=== PATIENT | male | born 1955 | race Caucasian/White ===

== ENCOUNTER 2017-05-30 20:18 | Emergency (ER) | payer MEDICAID ==
[~2017-05-30] VITALS: Ht 163.8 cm; Wt 143.5 kg
[~2017-05-30 20:18] MED LIST: ASPI-556 PO; DOXA1TAB2 PO; DOXY100C PO; FURO20 PO; HYDR-3965 PO; IBUP-2070 PO; LOSA50TA37 PO; METF500T4 PO; PRAV40 PO; SLOWK8 PO; TRAM50TA4 PO; TRI115O TP
[2017-05-30] MEDS ORDERED: BUPR-93 PO (20:30)
[2017-05-30] MEDS ORDERED: ASA3 PO (20:30)
[2017-05-30] MEDS ORDERED: SIMV-261 PO (20:30)
[2017-05-30 20:33] LABS: GLUCOSE,POINT OF CARE 256 MG/DL (70-110)
[2017-05-30 21:12] LABS: BASOPHILS % (AUTO) 0.2 % (0.0-2.0); EOSINOPHILS % (AUTO) 2.2 % (1.0-6.0); HEMATOCRIT 41.9 % (41-53); HEMOGLOBIN 14.3 g/dL (13.5-17.5); LYMPHOCYTES % (AUTO) 10.1 % (22.0-44.0); MEAN CORPUSCULAR HEMOGLOBIN 34.6 pg (26.0-34.0); MEAN CORPUSCULAR HGB CONC 34.2 G/dL (31.0-37.0); MEAN CORPUSCULAR VOLUME 101 fL (80-100); MONOCYTES # (AUTO) 0.6 K/uL (0.1-1.0); MONOCYTES % (AUTO) 6.2 % (2.0-9.0); NEUTROPHILS # (AUTO) 8.1 K/uL (1.8-7.7); NEUTROPHILS % (AUTO) 81.3 % (40.0-70.0); PLATELET COUNT (AUTO) 200 K/uL (150-450); RED BLOOD CELL COUNT(AUTO) 4.15 MIL/uL (4.50-5.90); WHITE BLOOD COUNT (AUTO) 9.9 K/uL (4.5-11.0)
[2017-05-30 21:18] LABS: RBC MORPHOLOGY COMMENT ABNORMAL RBC MORPH
[2017-05-30 21:32] LABS: CREATININE 1.74 mg/dL (0.60-1.30); POTASSIUM 4.2 mmol/L (3.5-5.1)
[2017-05-30 21:39] LABS: ALBUMIN 3.5 g/dL (3.4-5.0); BILIRUBIN,TOTAL 0.6 mg/dL (0.1-1.0); TOTAL PROTEIN, SERUM 7.4 g/dL (6.4-8.2)
[2017-05-30 23:54] LABS: APPEARANCE,URINE CLEAR (CLEAR); GLUCOSE, URINE (UA) NEGATIVE (NEGATIVE); KETONES,URINE NEGATIVE (NEGATIVE); LEUKOCYTE ESTERASE ,URINE MODERATE (NEGATIVE); OCCULT BLOOD,URINE NEGATIVE (NEGATIVE); PH,URINE 6.5 (5.0-8.0); PROTEIN,URINE NEGATIVE (NEGATIVE)
[2017-05-31 00:36] LABS: RBC,URINE 0-2 /HPF (0-2); SQUAMOUS EPITHELIAL CELL,UR Moderate /LPF (None Seen)
[2017-05-31 03:05] VITALS: BP 129/83
== END 2017-05-31 03:06 | disposition home or self-care (01) ==
LOC: EMS 20:21
DX: B00.9 Herpesviral infection, unspecified (principal); R60.0 Localized edema; R21 Rash and other nonspecific skin eruption; M79.662 Pain in left lower leg; E11.9 Type 2 diabetes mellitus without complications; I10 Essential (primary) hypertension; Z79.82 Long term (current) use of aspirin
CPT/HCPCS: 82962; 87086; 93970; 99285